=== PATIENT | male | born 1960 | race Caucasian/White ===

== ENCOUNTER 2019-08-29 20:19 | Emergency (ER) | payer OTHER ==
[~2019-08-29] VITALS: Ht 180.3 cm; Wt 69.4 kg
[2019-08-29 20:57] VITALS: BP 149/72
[2019-08-29 22:01] LABS: INR 1.01 (0.9-1.15)
[2019-08-29 22:04] LABS: Amylase 42 U/L (25-115); Anion Gap 5 (5-15); Blood Urea Nitrogen 19 mg/dL (7-18); Calcium 9.4 mg/dL (8.5-10.1); Carbon Dioxide 25 mmol/L (21-32); Chloride 107 mmol/L (98-107); Glucose 140 mg/dL (74-106); Lipase 19 U/L (73-393); Magnesium 2.2 mg/dL (1.6-2.6); Potassium 3.8 mmol/L (3.5-5.1); Sodium 137 mmol/L (136-145)
[2019-08-29 22:10] LABS: Alanine Aminotransferase 22 U/L (16-61); Alkaline Phosphatase 87 U/L (45-117); Aspartate Aminotransferase 16 U/L (15-37); BUN/Creatinine Ratio 18.1; Bilirubin, Total 0.5 mg/dL (0.2-1.0); GFR African American 93 mL/min; GFR Non-African American 77 mL/min; Total Protein 7.9 g/dL (6.4-8.2)
[2019-08-29 22:19] LABS: Basophils # (auto) 0 10 ^3/uL (0-0.2); Basophils % (auto) 0.3 % (0.0-2.0); Eosinophils # (auto) 0 10 ^3/uL (0-0.8); Eosinophils % (auto) 0.2 % (0.0-7.0); Hemoglobin 16.4 g/dL (13.5-17.5); Lymphocytes # (auto) 1.1 10 ^3/uL (0.4-5.4); Lymphocytes % (auto) 7.7 % (10.0-50.0); Mean Corpuscular Hemoglobin 32.5 pg (28.0-32.0); Mean Corpuscular Hgb Conc. 34.2 g/dL (32.0-36.0); Mean Corpuscular Volume 95.1 fL (80.0-100.0); Monocytes # (auto) 0.4 10 ^3/uL (0-1.3); Monocytes % (auto) 3.2 % (0.0-12.0); Neutrophils # (auto) 12.3 10 ^3/uL (1.6-8.6); Neutrophils % (auto) 88.6 % (37.0-80.0); Nucleated Red Blood Cells % 0.1 %; Platelet Count (auto) 286 10^3/uL (140-450); Red Blood Cells 5.05 10^6/uL (4.5-5.90); Red Cell Distribution Width 13.4 % (11.8-14.3); White Blood Cell 13.9 10^3/uL (4.4-10.8)
[2019-08-29 23:07] LABS: Urine Bacteria FEW /hpf (None Seen); Urine Blood 3+ /uL (Negative); Urine Mucus FEW (None Seen); Urine Specific Gravity 1.025 (1.001-1.035); Urine WBC 6 /hpf (0 - 3)
[2019-08-30] MEDS ORDERED: KETOROLAC TROMETH 60MG/2ML VIAL IM ONE
== END 2019-08-30 04:06 | disposition home or self-care (01) ==
LOC: ER 20:29
DX: N13.2 Hydronephrosis with renal and ureteral calculous obstruction (principal)
CPT/HCPCS: 36415; 71045; 74176; 80053; 81001; 82150; 83690; 83735; 84484; 85025; 85610; 85730; 93005; 96372; J1885